=== PATIENT | male | born 1975 | race Caucasian/White ===

== ENCOUNTER 2016-09-30 21:25 | Emergency (ER) | payer OTHER ==
[2016-09-30 21:59] VITALS: BP 153/103; PULSE 107; TEMP 98; BMI 25.0
--- NOTE | 2016-09-30 22:00 | PDOC ---
History of Present Illness - General History Source: Patient Exam Limitations: No Limitations - History of Present Illness Timing/Duration: reports: 1/2 hour <SweetieTerrell - Last Filed: 09/30/16 22:10> <Eddie Mane - Last Filed: 09/30/16 22:17> <Lizzie Guzman - Last Filed: 10/02/16 02:04> - General Stated Complaint: HEAD INJURY Time Seen by Provider: 09/30/16 22:00 Past History - Past Medical History Other medical history: Pt denies - Surgical History Abdominal Surgery: No - Immunization History Immunization Up to Date: Yes - Psycho/Social/Smoking Cessation Hx Anxiety: No Suicidal Ideation: No Smoking Status: No Smoking History: Never smoked Number of Cigarettes Smoked Daily: 0 Information on smoking cessation initiated: No Hx Alcohol Use: No Drug/Substance Use Hx: No Substance Use Type: None <Terrell Pitt - Last Filed: 09/30/16 22:10> <Eddie Mane - Last Filed: 09/30/16 22:17> <Lizzie Guzman - Last Filed: 10/02/16 02:04> - Past Medical History Allergies/Adverse Reactions: Allergies Allergy/AdvReac Type Severity Reaction Status Date / Time No Known Allergies Allergy Verified 09/30/16 21:56 Home Medications: Ambulatory Orders No Home Medications 0 dose .ROUTE UTDICT 04/08/12 *Physical Exam - Vital Signs Last Vital Signs Temp Pulse Resp BP Pulse Ox 98.0 F 107 H 20 153/103 97 09/30/16 21:56 09/30/16 21:56 09/30/16 21:56 09/30/16 21:56 09/30/16 21:56 <Terrell Pitt - Last Filed: 09/30/16 22:10> - Vital Signs Last Vital Signs Temp Pulse Resp BP Pulse Ox 98.0 F 107 H 20 153/103 97 09/30/16 21:56 09/30/16 21:56 09/30/16 21:56 09/30/16 21:56 09/30/16 21:56 <Eddie Mane - Last Filed: 09/30/16 22:17> - Vital Signs Last Vital Signs Temp Pulse Resp BP Pulse Ox 98.0 F 107 H 20 153/103 97 09/30/16 21:56 09/30/16 21:56 09/30/16 21:56 09/30/16 21:56 09/30/16 21:56 <Lizzie Guzman - Last Filed: 10/02/16 02:04> Procedures - Laceration/Wound Repair Medial Temporal Wound Length: to 2.5 cm Wound Explored: clean, no foreign body present Wound's Depth, Shape: superficial, linear Irrigated w/ Saline: Yes Anesthesia: 1% Lidocaine Amount of Anesthetic (ccs): 3 Wound Repaired With: [place] Number of Sutures: 4 <Eddie Mane - Last Filed: 09/30/16 22:17> ED Treatment Course - Medications Given in the ED: ED Medications Discontinued Medications Generic Name Dose Route Start Last Admin Trade Name Freq PRN Reason Stop Dose Admin Lidocaine HCl 3 ml 09/30/16 22:02 09/30/16 22:07 Xylocaine 1% SQ 09/30/16 22:03 3 ml ONCE ONE Administration <Eddie Mane - Last Filed: 09/30/16 22:17> - Medications Given in the ED: ED Medications Discontinued Medications Generic Name Dose Route Start Last Admin Trade Name Freq PRN Reason Stop Dose Admin Ibuprofen 800 mg 09/30/16 22:18 09/30/16 22:22 Motrin - PO 09/30/16 22:19 800 mg ONCE ONE Administration Lidocaine HCl 3 ml 09/30/16 22:02 09/30/16 22:07 Xylocaine 1% SQ 09/30/16 22:03 3 ml ONCE ONE Administration <Lizzie Guzman - Last Filed: 10/02/16 02:04> *DC/Admit/Observation/Transfer - Discharge Dispostion Admit: No <Terrell Pitt - Last Filed: 09/30/16 22:10> <Eddie Mane - Last Filed: 09/30/16 22:17> - Attestations Physician Attestion: I reviewed the case with the mid-level practitioner and agree with the mid- level practitioner's assessment, diagnosis and disposition. <Lizzie Guzman - Last Filed: 10/02/16 02:04> Diagnosis at time of Disposition: Scalp laceration Qualifiers: Encounter type: initial encounter Qualified Code(s): S01.01XA - Laceration without foreign body of scalp, initial encounter - Discharge Dispostion Disposition: HOME Condition at time of disposition: Stable - Patient Instructions Printed Discharge Instructions: DI for Closed Head Injury, DI for Laceration Repair of the Scalp Additional Instructions: Keep the incision clean and dry for 24 hours. After 24 hours, you may allow the soap and water to rinse off your incision. Avoid direct pressure of the water to the incision. Pat the incision dry with a clean clothe. Apply a small amount of bacitracin onto the incision. Cover the incision loosely with a bandaid. Take tylenol/motrin as needed for pain. Follow up with your physician or the ER in 48 hours for a wound check. Return to the ER if you notice red streaks, increase redness/swelling/severe pain to the incision. Staple removal in 7-10 days. R - Post Discharge Activity Work/School Note: Back to Work
[2016-09-30] MEDS ORDERED: LIDOCAINE HCL 1%, 10 MG/ML (50 mL VIAL) SQ ONE (22:02)
[2016-09-30] MEDS ORDERED: LIDOCAINE HCL/PF 1% SDV 5ML VIAL ONE (22:06)
[2016-09-30] MEDS ORDERED: IBUPROFEN 400 MG TABLET (FP) PO ONE ×2 (22:18→22:20)
== END 2016-09-30 22:25 | disposition home or self-care (01) ==
LOC: JER 21:25
PROC: 0HQ0XZZ Repair Scalp Skin, External Approach (ICD-10-PCS; principal; 2016-09-30)
DX: S01.01XA Laceration without foreign body of scalp, initial encounter (principal); X58.XXXA Exposure to other specified factors, initial encounter; Y93.9 Activity, unspecified; Y92.9 Unspecified place or not applicable
CPT/HCPCS: 99282-25

== ENCOUNTER 2018-05-25 23:49 | Emergency (ER) | payer OTHER ==
[2018-05-26 00:14] VITALS: BP 133/87; PULSE 89; TEMP 98.1; BMI 23.7
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
== END 2018-05-26 01:17 | disposition home or self-care (01) ==
LOC: JER 23:49
DX: Z77.21 Contact with and (suspected) exposure to potentially hazardous body fluids (principal); Y35.891A Legal intervention involving other specified means, law enforcement official injured, initial encounter; Y93.89 Activity, other specified; Y92.89 Other specified places as the place of occurrence of the external cause; Y99.0 Civilian activity done for income or pay
CPT/HCPCS: 99281-25